=== PATIENT | male | born 1985 | race Caucasian/White ===

== ENCOUNTER 2017-09-29 16:58 | Emergency (ER) | payer BC, OTHER ==
[2017-09-29 17:56] VITALS: BP 126/72
--- NOTE | 2017-09-29 18:23 | UC ---
FLU HPI - HPI Summary HPI Summary: Pt c/o sudden onset abdominal pain, diarrhea, fever, chills, generalized malaise beginning this morning - History of Current Complaint Chief Complaint: UCGI Stated Complaint: DIARRHEA/NAUSEA Time Seen by Provider: 09/29/17 17:53 Hx Obtained From: Patient Onset/Duration: Sudden Onset, Lasting Hours Severity Currently: Mild Severity Initially: Moderate Pain Intensity: 6 Associated Signs & Symptoms: Positive: Fever, Diarrhea Related Hx: Possible Flu/Infectious Exposure - Risk Factors Influenza Risk Factors: Negative - Allergy/Home Medications Allergies/Adverse Reactions: Allergies Allergy/AdvReac Type Severity Reaction Status Date / Time UNKNOWN ABX Allergy Unknown Uncoded 09/29/17 17:49 Reaction Details PMH/Surg Hx/FS Hx/Imm Hx Previously Healthy: Yes - Surgical History Surgical History: Yes Surgery Procedure, Year, and Place: RIGHT FOOT SX W/ HARDWARE. TONSILECTOMY - Family History Known Family History: Positive: Cardiac Disease - Social History Occupation: Employed Full-time Lives: With Family Alcohol Use: Occasionally Substance Use Type: None Smoking Status (MU): Former Smoker Type: Smokeless Tobacco Amount Used/How Often: 1 CAN PER WK Length of Time of Smoking/Using Tobacco: 10 YRS Have You Smoked in the Last Year: Yes When Did the Patient Quit Smoking/Using Tobacco: PT QUIT SMOKING 3 WKS AGO Review of Systems Constitutional: Fever, Chills, Fatigue Skin: Negative Eyes: Negative ENT: Negative Respiratory: Negative Cardiovascular: Negative Gastrointestinal: Diarrhea Genitourinary: Negative Motor: Negative Neurovascular: Negative Musculoskeletal: Myalgia Neurological: Negative Psychological: Negative Is Patient Immunocompromised?: No All Other Systems Reviewed And Are Negative: Yes Physical Exam Triage Information Reviewed: Yes Appearance: Ill-Appearing Vital Signs: Initial Vital Signs Temp 98.5 F 09/29/17 17:50 Pulse 89 09/29/17 17:50 Resp 12 09/29/17 17:50 BP 126/72 09/29/17 17:50 Pulse Ox 98 09/29/17 17:50 Vital Signs Reviewed: Yes Eye Exam: Normal ENT Exam: Normal Dental Exam: Normal Neck exam: Normal Respiratory Exam: Normal Cardiovascular Exam: Normal Musculoskeletal Exam: Normal Neurological Exam: Normal Psychological Exam: Normal Skin Exam: Normal Diagnostics - Laboratory Diagnostic Studies Completed/Ordered: RApid flu: negative Flu Course/Dx - Differential Dx/Diagnosis Differential Diagnosis/HQI/PQRI: Influenza, Other - food poisoning, Provider Diagnoses: gastroenteritis Discharge - Discharge Plan Condition: Stable Disposition: HOME Patient Education Materials: Gastroenteritis (ED) Referrals: Ricky Cordero MD [Primary Care Provider] - If Needed
== END 2017-09-29 18:42 | disposition home or self-care (01) ==
LOC: UCCORT 16:58
DX: K52.9 Noninfective gastroenteritis and colitis, unspecified (principal); Z72.89 Other problems related to lifestyle; Z87.891 Personal history of nicotine dependence
CPT/HCPCS: 87502; 99201; G0463

== ENCOUNTER 2018-03-04 17:43 | Emergency (ER) | payer OTHER ==
[2018-03-04 18:19] VITALS: BP 145/98
--- NOTE | 2018-03-04 18:55 | UC ---
Dental HPI - HPI Summary HPI Summary: Patient noted pain in his left lower back tooth on Saturday. The pain became unbearable and he followed up with Dr. Randall his dentist on Saturday. He was treated with an antibiotic and Tylenol with Codeine and scheduled for a root canal in March; however, the pain has become unbearable. The only thing that gives him relief which is very brief is ice water. He denies any associated headache, sore throat and fever but he and his note that the jaw next to the tooth is slightly swollen. They did consult his dentist who told him he has to give the antibiotic 2 days. - History of Current Complaint Chief Complaint: UCDentalProblem Stated Complaint: DENTAL Time Seen by Provider: 03/04/18 18:45 Hx Obtained From: Patient, Family/Automobile Technician Onset/Duration: Gradual Onset Pain Intensity: 10 Aggravating Factor(s): Nothing - Allergies/Home Medications Allergies/Adverse Reactions: Allergies Allergy/AdvReac Type Severity Reaction Status Date / Time UNKNOWN ABX Allergy Unknown Uncoded 03/04/18 18:19 Reaction Details Home Medications: Home Medications Acetaminophen with Codeine [Acetaminophen-Cod #3 Tablet] 1 tab Q4HR PRN [History Confirmed 03/04/18] Amoxicillin PO (*) [Amoxicillin 500 MG CAP*] 500 mg PO Q8HR 03/04/18 [History Confirmed 03/04/18] PMH/Surg Hx/FS Hx/Imm Hx Previously Healthy: Yes - Surgical History Surgical History: Yes Surgery Procedure, Year, and Place: RIGHT FOOT SX W/ HARDWARE. TONSILECTOMY - Family History Known Family History: Positive: Cardiac Disease - Social History Occupation: Employed Full-time Lives: With Family Alcohol Use: Occasionally Substance Use Type: None Smoking Status (MU): Former Smoker Type: Smokeless Tobacco Amount Used/How Often: 1 CAN PER WK Length of Time of Smoking/Using Tobacco: 10 YRS Have You Smoked in the Last Year: Yes When Did the Patient Quit Smoking/Using Tobacco: Aug 2017 - Immunization History Most Recent Tetanus Shot: UTD Vaccination Up to Date: Yes Review of Systems Constitutional: Negative Skin: Negative Eyes: Negative ENT: Dental Pain - L lower back tooth Respiratory: Negative Cardiovascular: Negative Gastrointestinal: Negative Genitourinary: Negative Motor: Negative Neurovascular: Negative Musculoskeletal: Negative Neurological: Negative Psychological: Negative Is Patient Immunocompromised?: No All Other Systems Reviewed And Are Negative: Yes Physical Exam Triage Information Reviewed: Yes Appearance: Well-Appearing, Pain Distress Vital Signs: Initial Vital Signs Temp 98.1 F 03/04/18 18:11 Pulse 63 03/04/18 18:11 Resp 16 03/04/18 18:11 BP 145/98 03/04/18 18:11 Pulse Ox 100 03/04/18 18:11 Vital Signs Reviewed: Yes Eyes: Positive: Conjunctiva Clear ENT: Positive: Pharynx normal, TMs normal, Other - Auricular cervical adenopathy.. Negative: Nasal congestion, Nasal drainage Dental: Positive: Other: - Patient is noted to have some very mild swelling to his left lower jaw adjacent to his posterior bicuspid. The area is not fluctuant. Patient has no left lower molars. His teeth in general appear to be in good repair. There is no percussion tenderness; however, patient points to the source of his pain as being his left lower posterior bicuspid. Patient is noted to be wincing in pain and holding his jaw and swooshing that area with ice water. Neck: Positive: Supple, Nontender, No Lymphadenopathy Respiratory: Positive: Lungs clear, Normal breath sounds Cardiovascular: Positive: RRR, No Murmur Abdomen Description: Positive: Nontender, No Organomegaly, Soft Bowel Sounds: Positive: Present Musculoskeletal: Positive: ROM Intact Neurological: Positive: Alert Psychological: Positive: Normal Response To Family, Age Appropriate Behavior Skin Exam: Normal Procedures - Procedure Summary Procedure Summary: Inferior alveolar nerve block on L with 0.5ml of 2% lidocaine with 30g followed by tip of 25g and 1ml of 2% Lidocaine. pt noted lessening pain shortly after. tolerated well and no active bleeding from site. Dental Complaint Course/Dx - Course Course Of Treatment: mild swelling to L lower jaw just lateral to the posterior bicuspid but are not fluctuant thus nothing to I&D. pain not relieved with antibiotic and tylenol #3 thus dental block offered. - Differential Dx/Diagnosis Provider Diagnoses: Intractable L lower posterior dental pain Discharge - Sign-Out/Discharge Documenting (check all that apply): Patient Departure - Discharge Plan Condition: Stable Disposition: HOME Prescriptions: Naproxen [Naprosyn 500 mg tab] 500 mg PO BID 5 Days #10 tablet Patient Education Materials: Toothache (ED) Referrals: Ricky Cordero MD [Primary Care Provider] - Additional Instructions: CONTINUE THE ANTIBIOTIC AND TYLENOL WITH CODEINE DIRECTED. FOLLOW UP WITH DR RANDALL(YOUR DENTIST) IN AM. START THE NAPROXEN IN AM. STOP THE MOTRIN. - Billing Disposition and Condition Condition: STABLE Disposition: Home
[2018-03-04] MEDS ORDERED: Bupivacaine 0.25% SDV* 30 ML INJ ONE (19:05)
[2018-03-04] MEDS ORDERED: Lidocaine 1%* 5 ML VIAL INJ ONE (19:10)
[2018-03-04] MEDS ORDERED: Lidocaine 2% PF * 5 ML VIAL ONE (19:14)
[2018-03-04] MEDS ORDERED: Ketorolac INJ* 60 MG/2 ML VIAL IM ONE (19:30)
== END 2018-03-04 19:59 | disposition home or self-care (01) ==
LOC: UCCORT 17:43
DX: K08.89 Other specified disorders of teeth and supporting structures (principal); Z88.1 Allergy status to other antibiotic agents; Z82.49 Family history of ischemic heart disease and other diseases of the circulatory system; Z87.891 Personal history of nicotine dependence
CPT/HCPCS: 96372; 99212; G0463; J1885